=== PATIENT | female | born 1990 | race Caucasian/White ===

== ENCOUNTER 2016-11-18 14:28 | Emergency (ER) | payer MEDICAID ==
[2016-11-18] MEDS ORDERED: Albuterol 0.083% 2.5 MG/3 ML Neb Soln NEB ONE (14:40)
[2016-11-18 15:11] VITALS: BP 125/70
[2016-11-18] MEDS ORDERED: predniSONE 20 MG Tab ONE (15:13)
--- NOTE | 2016-11-18 15:22 | EDM.PDOC ---
ED HPI GENERAL MEDICAL PROBLEM - General Chief Complaint: Asthma Stated Complaint: asthma Time Seen by Provider: 11/18/16 15:10 Source of Information: Reports: Patient History Limitations: Reports: No Limitations - History of Present Illness Onset: Today Duration: Hour(s): (3) Severity: Moderate Improves with: Reports: Other (Albuterol and Dulera but she has run out of inhalers.) Worsens with: Reports: Other (Smoke and dog dander, which she has been exposed to this weekend at wedding she was attending.) Context: Reports: Other (Having an asthma exacerabation and her inhalers are out.) Associated Symptoms: Reports: Shortness of Breath Treatments [employer]: Reports: Other Medication(s) (Had one Duoneb today but did not help.) - Related Data Allergies Allergy/AdvReac Type Severity Reaction Status Date / Time Sulfa (Sulfonamide Allergy Mild Hives Verified 03/28/15 02:50 Antibiotics) fluticasone propionate Allergy Hives Verified 03/28/15 02:50 [From Advair Diskus] salmeterol xinafoate Allergy Hives Verified 03/28/15 02:50 [From Advair Diskus] Home Meds: Home Meds ALPRAZolam [Xanax] 0.25 mg PO DAILY 09/25/13 [History] Amitriptyline [Elavil] 50 mg PO BEDTIME 09/25/13 [History] ClonazePAM [KlonoPIN] 1 mg PO TID 09/25/13 [History] Fluticasone Propionate [Flonase] 16 gm NS DAILY 09/25/13 [History] Albuterol Sulfate 0.63 mg IH Q4HR PRN 12/29/13 [History] Albuterol [Ventolin HFA] 1 puff INH Q4H PRN 12/29/13 [History] Social & Family History - Tobacco Use Smoking Status *Q: Current Every Day Smoker Years of Tobacco use: 1 Packs/Tins Daily: 1 Used Tobacco, but Quit: No Month Tobacco Last Used: 1 Second Hand Smoke Exposure: Yes - Alcohol Use Days Per Week of Alcohol Use: 1 Number of Drinks Per Day: 6 Total Drinks Per Week: 6 - Recreational Drug Use Recreational Drug Use: No Drug Use in Last 12 Months: Yes Recreational Drug Type: Reports: Barbituates, Marijuana/Hashish ED ROS GENERAL - Review of Systems Review Of Systems: See Below Constitutional: Reports: No Symptoms HEENT: Reports: No Symptoms Respiratory: Reports: Shortness of Breath, Wheezing Cardiovascular: Reports: No Symptoms Endocrine: Reports: No Symptoms GI/Abdominal: Reports: No Symptoms : Reports: No Symptoms Musculoskeletal: Reports: No Symptoms Skin: Reports: No Symptoms Neurological: Reports: No Symptoms Psychiatric: Reports: No Symptoms Hematologic/Lymphatic: Reports: No Symptoms Immunologic: Reports: Other (Dog dander allergy) ED EXAM, GENERAL - Physical Exam Exam: See Below Exam Limited By: No Limitations General Appearance: Alert, WD/WN, No Apparent Distress Eye Exam: Bilateral Eye: Normal Fundi, Normal Inspection, PERRL Ears: Normal External Exam, Normal Canal, Hearing Grossly Normal, Normal TMs Ear Exam: Bilateral Ear: Auricle Normal, Canal Normal, TM normal Nose: Normal Inspection, Normal Mucosa, No Blood Throat/Mouth: Normal Inspection, Normal Lips, Normal Teeth, Normal Gums, Normal Oropharynx, Normal Voice, No Airway Compromise Head: Atraumatic, Normocephalic Neck: Normal Inspection Respiratory/Chest: No Respiratory Distress, No Accessory Muscle Use, Chest Non- Tender, Wheezing Cardiovascular: Normal Peripheral Pulses, Regular Rate, Rhythm, No Edema, No Gallop, No JVD, No Murmur, No Rub GI/Abdominal: Normal Bowel Sounds, Soft, Non-Tender, No Organomegaly, No Distention, No Mass Back Exam: Normal Inspection, Full Range of Motion, NT Extremities: Normal Inspection, Normal Range of Motion, Non-Tender, Normal Capillary Refill, No Pedal Edema Neurological: Alert, Oriented, CN II-XII Intact, Normal Cognition, Normal Gait, Normal Reflexes, No Motor/Sensory Deficits Psychiatric: Normal Affect, Normal Mood Skin Exam: Warm, Dry, Intact, Normal Color, No Rash Lymphatic: No Adenopathy Course - Vital Signs Text/Narrative:: Uneventful ED course. She was breathing normally with no wheezes after she got her albuterol nebulizer. We discharged her with a Dulera inhaler 2 puffs q 4 hours prn and a Medrol dosepak. She also got 60 mg of oral prednisone today. She was back to normal and will follow up with her PCP in [place] in 2 days or return to the ED if any problems arise before then. Last Recorded V/S: Last Vital Signs Temp 36.7 C 11/18/16 15:02 Pulse 78 11/18/16 15:11 Resp 20 11/18/16 15:02 BP 125/70 11/18/16 15:11 Pulse Ox 100 11/18/16 15:11 - Orders/Labs/Meds Orders: Active Orders 24 hr Category Date Time Status RT Aerosol Therapy [RC] ASDIRECTED Care 11/18/16 14:41 Active Meds: Medications Discontinued Medications Generic Name Dose Route Start Last Admin Trade Name Gina PRN Reason Stop Dose Admin Albuterol 2.5 mg 11/18/16 14:40 11/18/16 15:11 Proventil Neb Soln NEB 11/18/16 14:41 2.5 mg ONETIME ONE Administration Prednisone Confirm 11/18/16 15:13 Prednisone Administered 11/18/16 15:14 Dose 60 mg .ROUTE .STK-MED ONE Departure - Departure Time of Disposition: 15:27 Disposition: Home, Self-Care 01 Clinical Impression: Asthma exacerbation - Discharge Information Referrals: PCP,None [Primary Care Provider] - Forms: ED Department Discharge Additional Instructions: Follow up in the clinic for refills of your prescriptions. If you have any questions or concerns please call [phone] or the clinic is [phone]. - My Orders Last 24 Hours: My Active Orders 11/18/16 14:41 RT Aerosol Therapy [RC] ASDIRECTED - Assessment/Plan Last 24 Hours: My Active Orders 11/18/16 14:41 RT Aerosol Therapy [RC] ASDIRECTED
[2016-11-21] MEDS ORDERED: Albuterol 0.083% 2.5 MG/3 ML Neb Soln NEB ONE (17:24)
[2016-11-21] MEDS ORDERED: predniSONE 1 MG Tab PO ONE (17:24)
== END 2016-11-18 15:16 | disposition home or self-care (01) ==
LOC: LB.ED 14:28
DX: J45.901 Unspecified asthma with (acute) exacerbation (principal); F17.210 Nicotine dependence, cigarettes, uncomplicated; Z88.2 Allergy status to sulfonamides; Z88.8 Allergy status to other drugs, medicaments and biological substances; Z79.899 Other long term (current) drug therapy
CPT/HCPCS: 99283-25; A9270-GY